=== PATIENT | female | born 1995 | race Caucasian/White ===

== ENCOUNTER 2024-12-26 19:48 | Emergency (ER) | payer OTHER, SELFPAY ==
[2024-12-26] VITALS (7 sets, daily range): BP systolic 110–134; BP diastolic 55–73; PULSE 46–71; RESP 13–22; TEMP 36.6; O2SAT 99–100; BMI 29.2
[2024-12-26] MEDS: ONDANSETRON 4 MG/2 ML INJ IV (20:03)
[2024-12-26 20:15] LABS: Add Manual Diff / Slide Review NO; Basophils Absolute Auto 100 /uL (0-100); Basophils Percent Auto 0.7 % (0-2); Eosinophils Absolute Auto 100 /uL (0-450); Eosinophils Percent Auto 0.8 % (2-4); Hematocrit 33.5 % (36-46); Hemoglobin 10.8 g/dL (12.0-16.0); Lymphocytes Absolute Auto 2000 /uL (1100-4500); Lymphocytes Percent Auto 15.3 % (25-40); Mean Corpuscular HGB Conc 32.3 % (30-36); Mean Corpuscular Hemoglobin 22.6 PG (26-34); Monocytes Absolute Auto 700 /uL (0-900); Monocytes Percent Auto 5.2 % (3-14); Neutrophils Absolute Auto 10200 /uL (1500-7000); Platelet Count 398 X10^3/uL (150-400); Red Blood Cell Count 4.78 X10^6/uL (4.0-5.2); Red Cell Distribution Width 15.2 % (11.6-14.8); White Blood Cell Count 13.1 X10^3/uL (4.5-11.0)
[2024-12-26 20:26] LABS: Alanine Aminotransferase 20 IU/L (<35); Albumin 4.6 g/dL (3.5-5.0); Albumin Globulin Ratio 1.7 (1.0-2.8); Alkaline Phosphatase 49 U/L (38-126); Aspartate Aminotransferase 24 IU/L (14-36); BUN Creatinine Ratio 19.3 (6-22); Bilirubin Total 0.4 mg/dL (0.2-1.3); Blood Urea Nitrogen 16 mg/dL (7-17); Calcium 9.7 mg/dL (8.4-10.2); Carbon Dioxide 21 mmol/L (22-32); Chloride 103 mmol/L (98-107); Estimated Glomerular Filt Rate > 60 mL/min (>60); Globulin 2.7 g/dL (1.7-4.1); Glucose 140 mg/dL (70-100); HEMOLYSIS < 15 (0-50); Lipase 150 U/L (23-300); Potassium 3.9 mmol/L (3.4-5.1); Sodium 139 mmol/L (137-145); Total Protein 7.3 g/dL (6.3-8.2)
[2024-12-26 20:40] LABS: Bacteria Urine Few (2-10); Culture Indicated Urine Cult Not Indicated; Mucus Urine 1+ (Negative); RBC Urine 1-5/HPF (0-5/HPF); Squamous Epithelial Cell Urine 0-1 /HPF (0-5/HPF); Urine Volume 10mL (spun); WBC Urine 0-1/HPF (0-5/HPF)
[2024-12-26] MEDS: diphenhydrAMINE 50 MG/ML VIAL 25 MG IV (21:13)
[2024-12-26] MEDS: PROCHLORPERAZINE 10 MG/2 ML VIAL IV (21:14)
--- NOTE | 2024-12-26 21:28 | ED.GENADULT ---
HPI - General Adult General Chief complaint: Abdominal Pain Stated complaint: vomiting, abd px Time Seen by Provider: 12/26/24 20:14 Source: patient and family Mode of arrival: Wheelchair History of Present Illness HPI narrative: 29-year-old woman with a history of what sounds like polycystic ovary disease, menometrorrhagia that has been treated with ibuprofen only presents with severe vomiting all day today to point where she is diaphoretic and dizzy when she stands up. She complains of severe pelvic/lower abdominal cramping, cold sweats and increasing weakness. She has not been having diarrhea has had regular bowel movements. Does not have any fevers. Nobody else at home is sick with similar findings. She does not have any body aches or other viral type complaints, no recent cough, no palpitations. Related Data Previous Rx's Medication Instructions Recorded ondansetron 4 mg disintegrating 4 mg PO Q8H PRN nausea and 12/27/24 tablet vomiting #20 tabs Allergies Allergy/AdvReac Type Severity Reaction Status Date / Time No Known Drug Allergies Allergy Verified 12/26/24 19:54 Review of Systems Review of Systems Narrative: Pertinent positive and negative findings as per HPI Patient History Social History Smoking Status: Never smoker Smoking Status: Never smoker Exam Initial Vital Signs Initial Vital Signs: Vital Signs Temperature 98 F 12/26/24 19:54 Pulse Rate 56 L 12/26/24 19:54 Respiratory Rate 22 12/26/24 19:54 Blood Pressure 110/55 L 12/26/24 19:54 Pulse Oximetry 100 12/26/24 19:54 Oxygen Delivery Method Room Air 12/26/24 19:54 General: Pale, dry mucous membranes, appears weak, able to cooperate completely with exam HEENT: normal sclera with reactive pupils, Respiratory: Lungs are clear to auscultation, no wheezing no rales no rhonchi. Full and symmetrical air movement Cardiac: Regular rate and rhythm no murmurs no bruits Abdomen: Soft, tender in the suprapubic/pelvic area without tenderness into the right or left lower quadrants. No flank pain Skin: Pale but otherwise Warm and dry, no rashes Neurologic: Grossly neurologically intact with no obvious asymmetries or abnormalities Extremities: No trauma, well perfused Psych: Cooperative, appropriate insight and affect Course Orders Ordered: ED Orders 12/26/24 19:57 EKG-12 Lead Stat 12/26/24 20:05 Complete Blood Count AUTO DIFF Stat Comprehensive Metabolic Panel Stat Lipase Stat 12/26/24 20:17 Urine Microscopic Stat 12/26/24 21:35 US pelvic complete Stat Ondansetron HCl (Ondansetron 4 Mg/2 Ml Inj) 4 mg IV NOW PRN PRN Reason: Nausea And Vomiting Last Admin: 12/26/24 20:03 Dose: 4 mg Documented By: SUKUMAR Ondansetron HCl (Ondansetron 4 Mg Odt) 4 mg PO NOW PRN PRN Reason: Nausea And Vomiting Discontinued Medications Diphenhydramine HCl (Diphenhydramine 50 Mg/Ml Vial) 25 mg IV NOW ONE Stop: 12/26/24 21:10 Last Admin: 12/26/24 21:13 Dose: 25 mg Documented By: HATTIE Sodium Chloride (Normal Saline 0.9%) 1,000 mls @ 1,000 mls/hr IV BOLUS ONE Stop: 12/26/24 22:34 Last Infusion: 12/26/24 22:55 Dose: Infused Documented By: Admin: 12/26/24 21:40 Dose: 1,000 mls/hr Documented By: HATTIE Ketorolac Tromethamine (Ketorolac 30 Mg/Ml Vial) 15 mg IV NOW ONE Stop: 12/26/24 21:36 Last Admin: 12/26/24 21:42 Dose: 15 mg Documented By: HATTIE Prochlorperazine (Prochlorperazine 10 Mg/2 Ml Vial) 10 mg IV NOW ONE Stop: 12/26/24 21:10 Last Admin: 12/26/24 21:14 Dose: 10 mg Documented By: HATTIE Vital Signs Vital signs: Vital Signs - 8 hr 12/26/24 19:54 12/26/24 20:27 12/26/24 20:30 Temperature 98 F Pulse Rate 56 L 47 L 47 L Respiratory Rate 22 13 14 Blood Pressure 110/55 L Pulse Oximetry 100 100 99 Oxygen Delivery Method Room Air 12/26/24 20:30 12/26/24 21:00 12/26/24 21:00 Temperature Pulse Rate 46 L Respiratory Rate 19 Blood Pressure 125/73 123/60 Pulse Oximetry 99 Oxygen Delivery Method 12/26/24 21:14 12/26/24 21:30 12/26/24 21:30 Temperature Pulse Rate 53 L 71 Respiratory Rate 19 Blood Pressure 123/60 134/58 L Pulse Oximetry 100 Oxygen Delivery Method 12/26/24 22:00 12/26/24 22:00 Temperature Pulse Rate 64 Respiratory Rate 17 Blood Pressure 123/59 L Pulse Oximetry 99 Oxygen Delivery Method Medical Decision Making Lab Data 12/26/24 20:05 12/26/24 20:05 Labs: Lab Results 12/26/24 12/26/24 Range/Units 20:05 20:17 WBC 13.1 H (4.5-11.0) X10^3/uL RBC 4.78 (4.0-5.2) X10^6/uL Hgb 10.8 L (12.0-16.0) g/dL Hct 33.5 L (36-46) % MCV 70.0 L (80-100) fL MCH 22.6 L (26-34) PG MCHC 32.3 (30-36) % RDW 15.2 H (11.6-14.8) % Plt Count 398 (150-400) X10^3/uL Neut % (Auto) 78.0 H (50-75) % Lymph % (Auto) 15.3 L (25-40) % Hitchcock % (Auto) 5.2 (3-14) % Eos % (Auto) 0.8 L (2-4) % Baso % (Auto) 0.7 (0-2) % Neut # (Auto) 98522 H (8405-1246) /uL Lymph # (Auto) 2000 (5694-6942) /uL Hitchcock # (Auto) 700 (0-900) /uL Eos # (Auto) 100 (0-450) /uL Baso # (Auto) 100 (0-100) /uL Sodium 139 (137-145) mmol/L Potassium 3.9 (3.4-5.1) mmol/L Chloride 103 (98-107) mmol/L Carbon Dioxide 21 L (22-32) mmol/L BUN 16 (7-17) mg/dL Creatinine 0.83 (0.52-1.04) mg/dL Estimated GFR > 60 (>60) mL/min BUN/Creatinine Ratio 19.3 (6-22) Glucose 140 H (70-100) mg/dL Calcium 9.7 (8.4-10.2) mg/dL Total Bilirubin 0.4 (0.2-1.3) mg/dL AST 24 (14-36) IU/L ALT 20 (<35) IU/L Alkaline Phosphatase 49 (38-126) U/L Total Protein 7.3 (6.3-8.2) g/dL Albumin 4.6 (3.5-5.0) g/dL Globulin 2.7 (1.7-4.1) g/dL Albumin/Globulin Ratio 1.7 (1.0-2.8) Lipase 150 (23-300) U/L Urine RBC 1-5/hpf (0-5/HPF) Urine WBC 0-1/hpf (0-5/HPF) Ur Squamous Epith Cells 0-1 /hpf (0-5/HPF) Urine Bacteria Few (2-10) H (None) Urine Mucus 1+ H (Negative) Ur Culture Indicated? Cult not indicated Vol Urine Centrifuged 10ml (spun) Point of Care Testing Test Results Negative Urine Dip Bedside Urine Glucose Negative Bedside Urine Bilirubin - Negative Bedside Urine Ketone + 15 Urine Specific [place] 1.010 Bedside Urine Occult Blood +++ Bedside Urine pH 8.0 Bedside Urine Protein +/- 15 Bedside Urine Urobilinogen - Negative Bedside Urine Nitrite - Negative Bedside Urine Leukocytes - Negative Esterase Point of care testing: Point of Care Testing Test Results Negative Urine Dip Bedside Urine Glucose Negative Bedside Urine Bilirubin - Negative Bedside Urine Ketone + 15 Urine Specific [place] 1.010 Bedside Urine Occult Blood +++ Bedside Urine pH 8.0 Bedside Urine Protein +/- 15 Bedside Urine Urobilinogen - Negative Bedside Urine Nitrite - Negative Bedside Urine Leukocytes - Negative Esterase [facility] Narrative Medical decision making narrative: CC: Severe vomiting all day with abdominal cramping Complicating co-morbidities: Menometrorrhagia Data collected from: patient Medical records reviewed: No medical records available Differential considered: Viral gastroenteritis, bowel obstruction, adenomyosis, ovarian torsion, ovarian cyst rupture Exam documented above, pertinent findings include: Patient is pale, dry mucous membranes, tenderness in the lower abdomen/pelvis without rebound or guarding Lab Test results independently reviewed as above. Pertinent findings: CBC shows mild leukocytosis at 13.1 with 78% neutrophils. She is also slightly anemic with a hemoglobin of 10.8 and an MCV at 70 suggesting microcytic anemia consistent with her menometrorrhagia history Chemistries are reassuring with normal renal function, normal electrolytes. Lipase is unremarkable Imaging studies independently reviewed: Pelvic ultrasound is reviewed. Preliminary report indicates large submucosal fibroid, probable adenomyosis no evidence torsion Treatments:2L NS, Toradol IV, Compazine and Benadryl IV, Zofran IV Re-evaluations: Patient was feeling much better Discussion: 29-year-old woman with low pelvic pain significant she is having vomiting. I suspect that it was the pain causing the vomiting however viral etiology remains within the differential and this was discussed with the patient. Pelvic ultrasound shows a large submucosal fibroid which likely explains her menometrorrhagia and her microcytic anemia. She also has some adenomyosis which likely is contributing to overall pain. We talked about using ibuprofen prior to beginning her menstrual cycle, she has been trying to do that but with the increasingly irregular and heavy menstrual bleeding this has been challenging. She declines use of any narcotics. She is interested in having nausea medications available and prescription will be sent. Will suggest that she follow up with our OBGYN clinic given the large submucosal fibroid and the adenomyosis. Did explain to her that there are effective therapies that are available and she does not have to suffer with heavy bleeding every 10 days and pain so bad it is causing her to vomit much of the day. We discussed for microcytic anemia, recommended iron supplementation. Questions are answered, no indication for hospitalization and she will be discharged Discharge Plan Departure Patient Disposition: Home Clinical Impression: Menometrorrhagia, Microcytic anemia, Fibroids, submucosal, Adenomyosis Instructions: DI for Uterine Fibroids, DI for Iron Deficiency Anemia-Adult Activity Restrictions/Additional Instructions: Thank you for coming in today You may have a viral gastroenteritis that caused the severe vomiting today. You were given 2 L of fluid, 2 different types of nausea medications and are feeling significantly better. Alternative explanation for the vomiting could be the severe pain that you are experiencing with recurrent heavy menstrual cycles. Your pelvic ultrasound shows that you have a large submucosal fibroid. This is likely why you are having heavy vaginal bleeding every 10 days. You also have adenomyosis which is endometrial cells growing outside of the endometrium which can contribute to much of the pain that you are experiencing. There is good treatment for both of these and there is no reason for you to be having pain so severe your vomiting and bleeding so heavy that you have an iron deficiency anemia Please contact our OBGYN providers to schedule a follow up appointment for your submucosal fibroid, you can contact [address] at [phone] to schedule ER follow up appointment I would recommend adding iron to your diet. Iron supplementation use an acid environment to be absorbed, taking an iron tablet with orange juice can be helpful. Actually cooking with a cast iron skillet does add a notable amount of iron to your diet. If you choose to, iron is bio available in red meat as well I have sent a prescription for Zofran to help with recurrent nausea to [facility] in [place]. It is helpful if you can begin ibuprofen before cramping gets severe. If you find that you are getting worse or develop any new symptoms, please feel free to return to the emergency department for further evaluation. Prescriptions: New ondansetron 4 mg tablet,disintegrating 4 mg PO Q8H PRN (Reason: nausea and vomiting) Qty: 20 1RF Referrals: Alla Lombardi ARNP [Primary Care Provider] - Stand Alone Forms: Patient Portal/API/Survey
--- NOTE | 2024-12-26 21:35 | DI.US.S_ITS ---
PROCEDURE: US PELVIC COMPLETE INDICATIONS: Pelvic pain, prolific vomiting, mild leukocytosis TECHNIQUE: Real-time scanning was performed of the pelvic organs, with image documentation. Additional endovaginal scanning was necessary due to incomplete visualization of the adnexal and endometrial structures by transabdominal scanning. COMPARISON: None. FINDINGS: Uterus: Uterus is anteverted and normal in size at 7.5 x 5.8 x 5.1 cm. The myometrium is heterogeneous. The endometrium measures 7 mm combined thickness. Venetian blind artifact. Uterine fibroid mid submucosal measuring 3.5 x 2.7 x 2.6. Ovaries: The right ovary measures 4.2 x 2.4 x 2.3 cm, with a calculated ovarian volume of 12 cc. The left ovary measures 3.9 x 3 x 2.5 cm, with a calculated ovarian volume of 15 cc. The ovaries have a normal sonographic appearance. Less than 12 follicles can be seen in each ovary. No adnexal masses are seen. Other: Small volume of free fluid. IMPRESSION: 1. Endometrium measuring 7 mm. 2. Submucosal fibroid measuring 3.5 cm. 3. Possible uterine adenomyosis. Consider pelvic MRI with IV contrast for further evaluation. 4. No significant ovarian cysts. No ovarian torsion We strive to produce accurate, complete, and clear reports of imaging services. To assist us in improving patient care, this report was composed using standard report templates and voice recognition software. Therefore, it may contain abnormal punctuation, insertions and/or omissions. Occasional wrong-word or sound-alike substitutions may occur. Though we review the report and make efforts to correct it, we do recommend that the report be read carefully in proper context to recognize any text inaccuracies. Dictated by: Thomas Carrillo M.D. on 12/27/2024 at 0:47 Approved by: Thomas Carrillo M.D. on 12/27/2024 at 0:52
[2024-12-26] MEDS: SODIUM CHLORIDE 0.9% 1,000 ML 1000 ML IV (21:40)
[2024-12-26] MEDS: KETOROLAC 30 MG/ML VIAL 15 MG IV (21:42)
== END 2024-12-27 00:29 | disposition home or self-care (01) ==
PROVIDERS: Emergency Provider Emergency Medicine
DX: N92.1 Excessive and frequent menstruation with irregular cycle (principal); D50.9 Iron deficiency anemia, unspecified; D25.0 Submucous leiomyoma of uterus; N80.03 Adenomyosis of the uterus; R11.2 Nausea with vomiting, unspecified
CPT/HCPCS: 36415; 76830; 76856; 80053; 81003; 81015; 81025; 83690; 85025; 93975; 96361; 96374; 96375; 99284; J0780; J1200; J1885; J2405

== ENCOUNTER 2025-01-04 12:22 | Day surgery (SDC) | payer BC, SELFPAY ==
[2024-12-31 07:33] VITALS: BMI 29.8
[2025-01-04] VITALS (11 sets, daily range): BP systolic 103–121; BP diastolic 56–74; PULSE 39–73; RESP 10–18; TEMP 36.2–36.3; O2SAT 95–100; BMI 28.7
--- NOTE | 2025-01-04 | PATH_ITS ---
[facility] Accession Number: [id number] No. of containers..01 Tissue . 01 Material submitted: . endometrium - ENDOMETRIAL CONTENTS . 01 Diagnosis: ENDOMETRIAL CONTENTS: Proliferative endometrium with patchy stromal breakdown; negative for endometrioid intraepithelial neoplasia or malignancy. Some endometrial fragments demonstrate prominent vessels, suggestive of polyp, if clinical and imaging studies are concordant. Fragments of myometrium; negative for significant atypia. [facility] 01/06/2025 1432 Local . 01 Electronically signed: . Vicki Segovia MD, Pathologist NPI- [id number] . 01 Gross description: . ENDOMETRIAL CONTENTS: Received in formalin are minute fragments of mucoid and hemorrhagic material measuring 2.5 x 2.5 x 0.3 cm in aggregate. Submitted in toto in 1 cassette. /NOE 01/04/2025 2325 Local . 01 Pathologist provided ICD-10: N93.9 . 01 CPT . 008019 Specimen Comment: A courtesy copy of this report has been sent to [facility] Pathology Performed at: [address] [id number] MD Zenon Ferreira MD Phone: [phone]
[2025-01-04] MEDS: SCOPOLAMINE 1 PATCH TOP (13:04)
[2025-01-04] MEDS: ACETAMINOPHEN 325 MG TABLET 975 MG PO (13:05)
[2025-01-04] MEDS: LACTATED RINGERS 1,000 ML 42 ML IV ×2 (13:05→14:15)
[2025-01-04] MEDS: FAMOTIDINE 20 MG/2 ML VIAL IV (13:05)
--- NOTE | 2025-01-04 13:16 | PM.PREOP ---
Pre-operative Note Interval Note History & Physical reviewed/Exam performed by Physician: Yes Changes to H&P: No ASA Class (for procedural sedation): II
--- NOTE | 2025-01-04 14:01 | SUR.OPER ---
Lithotomy on padded OR bed, head on pillow, arms secured on padded arm boards at <90 degrees abduction. Legs secured in padded yellow fins stirrups.
--- NOTE | 2025-01-04 14:13 | PM.OP.1 ---
Operative Date/Time/Diagnoses Date of procedure: 01/04/25 Time of procedure: 14:13 Pre-op diagnosis: AUB-L Post-op diagnosis: same Procedure & Clinicians Procedure: hysteroscopy, myosure myomectomy, dilation and curettage Same procedure as scheduled: Yes Indications: AUB-L Surgeon: Neeta Blankenship Click Yes if Unassisted: Yes Anesthesia Type: General Operative Notes Findings: normal external female genitalia, cervix and vagina intrauterine cavity with large submucosal fibroid (R lateral) bilateral ostia visualized Closure Type: not applicable Specimen(s): other (endometrial contents) Estimated Blood Loss (mL): 5 Procedure in detail: Pt was taken to the operating room, transferred to OR table and anesthesia was induced with placement of LMA.? Pt had her legs placed in Ahmet stirrups and an exam under anesthesia was performed. The patient was prepped and draped in a sterile fashion.? A time out was performed. ?The bladder was emptied via straight catheter in sterile fashion.? A sterile speculum was inserted into the vagina.? The cervix was visualized and grasped anteriorly using a single tooth tenaculum.? The uterus sounded to 8cm and the cervical os was serially dilated using Almonte dilators up to 17f to allow for passage of the hysteroscope.? The 5mm 0 degree hysteroscope was then inserted into the uterus with findings as noted.? The small Myosure device was introduced and the endometrium including visualized pathology was fractionally resected under direct visualization.? The hysteroscope was removed and the uterus was sharply curetted until a gritty texture was noted throughout.? The tenaculum was removed and hemostasis was noted at insertion sites after brief application of silver nitrate.? The speculum was removed and hemostasis was again noted to be excellent.? The patient then had her legs taken out of stirrups.? The patient tolerated the procedure well and without difficulty.? The patient was awakened from anesthesia and taken to PACU in stable condition. Complications: none Post-operative Condition: stable Disposition: PACU Plan for aftercare: anticipate dc to home pending clinical recovery
[2025-01-04] MEDS: SILVER NITRATE STICK 1 EACH TOP (14:14)
[2025-01-04] MEDS: KETOROLAC 30 MG/ML VIAL IV (14:32)
[2025-01-04] MEDS: fentaNYL 100 MCG/2 ML INJ IV ×2 (14:53→15:01)
[2025-01-04] MEDS: OXYCODONE IR 5 MG TABLET PO (14:57)
--- NOTE | 2025-01-04 15:09 | SUR.PHASEI ---
Patient was having periods of bradycardia down to 38. Assymptomatic. Anesthesia called and came to bedside to assess patient. anesthesia noted that bradycardia seemed to coincide with waves of pain that patient stated she was having. Patient would grimace and heart rate would decrease. Ordered to give dose of fentanyl. Fentanyl twice per anesthesia request. Patient tolerated well. Pain decreased and periods of bradycardia decreased.
== END 2025-01-04 15:50 | disposition home or self-care (01) ==
PROVIDERS: Referring Provider Obstetrics & Gynecology; Visit Provider Obstetrics & Gynecology
PROC: 0UDB8ZZ Extraction of Endometrium, Via Natural or Artificial Opening Endoscopic (ICD-10-PCS; CPT 58558; principal; 2025-01-04 15:00)
DX: N93.9 Abnormal uterine and vaginal bleeding, unspecified (principal); D25.0 Submucous leiomyoma of uterus
CPT/HCPCS: 58561; 81025; J1100; J1885; J2250; J2405; J2704; J3010

== ENCOUNTER 2025-09-16 06:43 | Day surgery (SDC) | payer BC, SELFPAY ==
[2025-09-10 10:45] VITALS: BMI 25.1
[2025-09-16] VITALS (7 sets, daily range): BP systolic 84–142; BP diastolic 40–58; PULSE 56–75; RESP 16–20; TEMP 36.1–36.6; O2SAT 98–100
--- NOTE | 2025-09-16 | PATH_ITS ---
[facility] Accession Number: [id number] No. of containers..01 Tissue . 01 Material submitted: . endometrium - ENDOMETRAL CURETTINGS . 01 Diagnosis: ENDOMETRIAL CURETTINGS: Portions of inactive endometrium; negative for endometrioid intraepithelial neoplasia or malignancy. Abundant fragments of myometrium; negative for significant cytologic atypia, increased mitotic activity, or regions of necrosis. The findings could be consistent with a subepithelial leiomyoma, in the appropriate clinical and imaging setting. [facility]V 09/21/2025 1604 Local . 01 Electronically signed: . Vicki Segovia MD, Pathologist NPI- [id number] . 01 Gross description: . Received [id number] container, labeled with the patient's name and labeled endometrial curettings are multiple fragments of tissue and blood which measure 6.0 x 4.0 x 0.3 cm in aggregate. The specimen is filtered and totally submitted in A1-A5. ([facility] [place]:[id number]) /MRV 09/19/2025 1311 Local . 01 Pathologist provided ICD-10: N93.9 . 01 CPT . 102339 Specimen Comment: A courtesy copy of this report has been sent to [facility]ology Performed at: [address] [address], [place], [place] [id number] MD Zenon eFrreira MD Phone: [phone]
[2025-09-16] MEDS: ACETAMINOPHEN IV 1,000 MG/100 ML VIAL 400 MG IV (07:29)
[2025-09-16] MEDS: LACTATED RINGERS 1,000 ML 42 ML IV (07:30)
--- NOTE | 2025-09-16 07:37 | PM.PREOP ---
Pre-operative Note Interval Note History & Physical reviewed/Exam performed by Physician: Yes Changes to H&P: No ASA Class (for procedural sedation): I
--- NOTE | 2025-09-16 08:16 | SUR.OPER ---
Lithotomy on padded OR bed, head on pillow, arms secured on padded arm boards at <90 degrees abduction. Legs secured in padded yellow fins stirrups.
--- NOTE | 2025-09-16 08:40 | PM.GYNOP.1 ---
Operative Date/Time/Diagnoses Date of procedure: 09/16/25 Time of procedure: 08:40 Pre-op diagnosis: AUB-L Post-op diagnosis: same Procedure & Clinicians Procedure: Procedures Operation Date: 09/16/25 07:45 Actual Procedure Side Surgeon p Hysteroscopy MyoSure Myomectomy, Mirena IUD Not Applicable Neeta Blankenship MD Indications: AUB-L Surgeon: Neeta Blankenship Anesthesia Type: General Operative Notes Findings: normal external female genitalia, perineum and anus cervix visually wnl, severe retroflexion of uterus bilateral ostia visualized, large fundal submucosal fibroid approx 70% within cavity Closure Type: not applicable Specimen(s): endometrial curettings Applied: none and device(s) (mirena IUD S/N [id number] Exp Aug 2027 Lot [id number]) Estimated blood loss (mL): 10 Blood products transfused: none Procedure in detail: Pt was taken to the operating room, transferred to OR table and anesthesia was induced with placement of LMA.? Pt had her legs placed in Ahmet stirrups and an exam under anesthesia was performed. The patient was prepped and draped in a sterile fashion.? A time out was performed. ?The bladder was emptied via straight catheter in sterile fashion.? A sterile speculum was inserted into the vagina.? The cervix was visualized and grasped anteriorly using a single tooth tenaculum.? The uterus sounded to 7.5cm and the cervical os was serially dilated using Almonte dilators up to 17f to allow for passage of the hysteroscope.? The 5mm 0 degree hysteroscope was then inserted into the uterus with findings as noted.? The XL Myosure device was introduced and the endometrium including visualized pathology was fractionally resected under direct visualization; note approx 30% of leiomyoma was left in situ due to concern for integrity of overlying myometrium.?The hysteroscope was removed and the uterus was sharply curetted until a gritty texture was noted throughout.? The mirena IUD obtained from [employer] ( S/N [id number] Aug 2027 Lot [id number]) was placed per forming and assembling supervisor instructions, strings trimmed to 3cm distal from external os. The tenaculum was removed and hemostasis was noted at insertion sites.? The speculum was removed and hemostasis was again noted to be excellent.? The patient then had her legs taken out of stirrups.? The patient tolerated the procedure well and without difficulty.? The patient was awakened from anesthesia and taken to PACU in stable condition. Complications: none Post-operative Condition: stable Disposition: PACU Plan for aftercare: anticipate dc to home pending recovery, routine postop f/u in office as scheduled
[2025-09-16] MEDS: ONDANSETRON 4 MG/2 ML INJ IV ×2 (08:59→09:39)
== END 2025-09-16 10:09 | disposition home or self-care (01) ==
PROVIDERS: Referring Provider Obstetrics & Gynecology; Visit Provider Obstetrics & Gynecology
PROC: 0UDB8ZZ Extraction of Endometrium, Via Natural or Artificial Opening Endoscopic (ICD-10-PCS; CPT 58558; principal; 2025-09-16 07:45)
DX: N93.9 Abnormal uterine and vaginal bleeding, unspecified (principal)
CPT/HCPCS: 58561; 58300; 81025; C1713; J0131; J1100; J1171; J1885; J2250; J2405; J2704; J3010; J7120; J7298